=== PATIENT | female | born 1970 | race Caucasian/White ===

== ENCOUNTER 2016-07-23 09:35 | Emergency (ER) | payer BC, OTHER ==
[~2016-07-23] VITALS: Ht 170.2 cm; Wt 103.6 kg
[2016-07-23 09:38] VITALS: Ht 170.2 cm; Wt 103.6 kg
[2016-07-23] MEDS ORDERED: DiphenhydrAMINE HCL 50 MG/ML VIAL IV STA (09:54)
[2016-07-23] MEDS ORDERED: PROCHLORPERAZINE 5 MG/ML 2 ML VIAL IV STA (09:54)
[2016-07-23] MEDS ORDERED: SODIUM CHLORIDE 0.9% 1000ML 1,000 ML IV STA (09:54)
[2016-07-23] MEDS ORDERED: KETOROLAC TROMETHAMINE 30 MG/ML VIAL IV STA (09:54)
[2016-07-23] MEDS ORDERED: PROCHLORPERAZINE INJ 10 MG in SYRINGE 8 ML IV ONE (10:45)
[2016-07-23 11:30] LABS: HEMATOCRIT 39.6 % (37-47); MEAN CELL VOLUME 88.6 fL (80-100); MEAN CORPUSCULAR HEMOGLOBIN 30.4 pg (25-34); MEAN CORPUSCULAR HGB CONC 34.3 g/dl (32-36); MEAN PLATELET VOLUME 9.6 fL (7.4-10.4); PLATELET COUNT 220 K/uL (130-400); RED BLOOD COUNT 4.47 M/uL (4.2-5.4); WHITE BLOOD COUNT 10.56 K/uL (4.8-10.8)
[2016-07-23 11:49] LABS: CALCIUM 8.5 mg/dl (8.5-10.1); CREATININE 0.66 mg/dl (0.60-1.20); POTASSIUM 3.6 mmol/L (3.5-5.1)
--- NOTE | 2016-07-23 12:08 | DIAGNOSTIC IMAGING REPORT ---
HEAD CT NONCONTRAST CT DOSE: 614.27 mGy.cm HISTORY: Pain. Change in mental status. headache, severe TECHNIQUE: Multiaxial CT images of the head were performed without the use of intravenous contrast. Comparison: 11/06/2009 Findings: The paranasal sinuses and mastoid air cells are clear. The calvarium and skull base are intact. The ventricles and sulci are within normal limits. There is no mass, hematoma, midline shift, or acute infarct. Impression: No acute intracranial abnormality. Electronically signed by: Jayro Gunter M.D. 07/23/2016 12:07 PM Dictated Date/Time: 07/23/2016 12:06 PM
[2016-07-23 12:15] LABS: PREG INTERNAL NEGATIVE QC NEG CLEAR BACKGROUND; PREG INTERNAL POSITIVE QC POS CONTROL LINE
[2016-07-23 13:18] VITALS: BP 113/71; PULSE 66; O2SAT 98
--- NOTE | 2016-07-23 15:13 | EMERGENCY ROOM VISIT NOTE ---
History Report prepared by Precious: Velma Villarreal Under the Supervision of: Dr. Wilson Bruno M.D. First contact with patient: 09:50 Chief Complaint: HEADACHE Stated Complaint: LEFT EYE SIGHT, MOUTH TINGLING/NUMB, NAUSEA, CARMICHAEL History of Present Illness The patient is a 46 year old female who presents to the Emergency Room with complaints of persistent headache since this morning at 0820 (about 1.5 hours). She rates her discomfort as a 10/10. The pain is mostly on the left side. She drove herself to the ED from work. She experienced some migraines last week, but was able to alleviate the symptoms by taking Excedrin. She tried taking Excedrin, but experienced no relief this time. She has been having migraines for a long time. Previously, she has experienced total paralysis, facial droop, and vision loss with migraines. She was previously on a beta-ida, but had to stop after her blood pressure became too low. She reports that her left hand feels heavy and she is nauseous and feels photophobic. She has had brain images taken, but it has been a while since the last images were taken. Last week, she did experience a head cold, but otherwise, she has not been ill. Source of History: patient Onset: this morning 0820 Position: head Symptom Intensity: 10/10 Timing: other (persistent) Associated Symptoms: + nausea Note: Pt reports her left hand feeling heavy. Review of Systems See HPI for pertinent positives & negatives. A total of 10 systems reviewed and were otherwise negative. Past Medical & Surgical Medical Problems: (1) Migraine Family History Patient reports no known family medical history. Social History Smoking Status: Current Every Day Smoker Marital Status: Housing Status: lives with family Occupation Status: employed Current/Historical Medications No Active Prescriptions or Reported Meds Allergies Coded Allergies: No Known Allergies (Unverified , UNKNOWN, 11/29/10) Physical Exam Vital Signs Date Time Temp Pulse Resp B/P Pulse Ox O2 Delivery O2 Flow Rate FiO2 07/23/16 13:18 66 16 113/71 98 07/23/16 12:28 62 14 120/75 98 Room Air 07/23/16 10:40 49 18 110/78 97 Room Air 07/23/16 09:38 98 26 117/81 99 Room Air Physical Exam GENERAL: Patient is in no acute distress. Anxious. HEENT: No acute trauma, normocephalic atraumatic, mucous membranes moist, no nasal congestion, no scleral icterus. Pupils equal and reactive to light. NECK: No stridor, no adenopathy, no meningismus, trachea is midline. LUNGS: Clear to auscultation bilaterally, no wheeze, no rhonchi, breath sounds equal. HEART: Without murmurs gallops or rubs, regular rate and rhythm. ABDOMEN: Soft, nontender, bowel sounds positive, no hernias, no peritonitis. EXTREMITIES: No cyanosis or edema, full range of motion of all the joints without pain or difficulty, no signs for acute trauma. NEUROLOGIC: Awake, alert, moving all extremities, no speech slur or face droop, slightly decreased strength in left hand grasp, no cerebellar deficits. SKIN: No rash, no jaundice, no diaphoresis Medical Decision & Procedures ER Provider Diagnostic Interpretation: Radiology results and stated below per my review and radiologist interpretation: HEAD CT NONCONTRAST CT DOSE: 614.27 mGy.cm HISTORY: Pain. Change in mental status. headache, severe TECHNIQUE: Multiaxial CT images of the head were performed without the use of intravenous contrast. Comparison: 11/06/2009 Findings: The paranasal sinuses and mastoid air cells are clear. The calvarium and skull base are intact. The ventricles and sulci are within normal limits. There is no mass, hematoma, midline shift, or acute infarct. Impression: No acute intracranial abnormality. Electronically signed by: Jayro Gunter M.D. 07/23/2016 12:07 PM Dictated Date/Time: 07/23/2016 12:06 PM Laboratory Results 07/23/16 11:15 07/23/16 11:15 Test 07/23/16 11:15 Red Blood Count 4.47 M/uL (4.2-5.4) Mean Corpuscular Volume 88.6 fL (80-100) Mean Corpuscular Hemoglobin 30.4 pg (25-34) Mean Corpuscular Hemoglobin Concent 34.3 g/dl (32-36) RDW Standard Deviation 46.8 fL (36.4-46.3) RDW Coefficient of Variation 14.5 % (11.5-14.5) Mean Platelet Volume 9.6 fL (7.4-10.4) Anion Gap 11.0 mmol/L (3-11) Est Creatinine Clear Calc Drug Dose 134.6 ml/min Estimated GFR () 124.5 Estimated GFR (Non- 107.4 BUN/Creatinine Ratio 13.0 (10-20) Calcium Level 8.5 mg/dl (8.5-10.1) Human Chorionic Gonadotropin, Qual NEG (NEG) Laboratory results reviewed by me. Medications Administered Medications (Trade) Dose Ordered Sig/Anton Route Start Time Stop Time Status Last Admin Dose Admin Sodium Chloride (Nss 1000ml) 1,000 ml @ 999 mls/hr Q1H1M STAT IV 07/23/16 09:54 07/23/16 10:54 DC 07/23/16 10:39 999 MLS/HR Ketorolac Tromethamine (Toradol Inj) 30 mg NOW STAT IV 07/23/16 09:54 07/23/16 09:58 DC 07/23/16 10:39 30 MG Diphenhydramine HCl 50 mg 50 mg NOW STAT IV 07/23/16 09:54 07/23/16 09:58 DC 07/23/16 10:38 50 MG Prochlorperazine Edisylate/Syringe (Compazine Inj/ Syringe) 10 ml @ 5 mls/min 1045 ONCE IV 07/23/16 10:45 07/23/16 10:46 DC 07/23/16 10:39 5 MLS/MIN ED Course 0953: The patient was evaluated in room A3. A complete history and physical exam was performed. 0954: Benadryl Inj 50 mg IV, Toradol Inj 30 mg IV, NSS 1000 ml @ 999 mls/hr IV. 1045: Prochlorperazine Edisylate 10 mg/ Syringe 10 ml @ 5 mls/min IV. 1102: I reevaluated the patient. Her discomfort has decreased down to a 7/10. I discussed with her taking an MRI to investigate further. 1250: I reevaluated the patient. Her headache has resolved. She refused the MRI. She would like to go home. I discussed the results and treatment plan. She verbalized understanding and agreement. She will be discharged home. Medical Decision Differential diagnoses: migraine headache, complex migraine, intracranial bleeding, meningitis, stroke, anxiety. There is no leukocytosis or concerning anemia. No significant electrolyte abnormality or kidney failure. Brain CT shows no acute bleed or mass effect. The patient was not toxic or febrile. On exam, there was some very subtle left hand grasp weakness noticed. She was feeling weak on the left side. The patient is a history of complex migraines. Her headache today is consistent with a possible complex migraine. She was given IV Compazine, IV Benadryl, IV Toradol and IV saline, she feels markedly better. Because of the neurologic complaints, an MRI of the brain was ordered, the patient though could not tolerate this test and refused any further imaging. She was happy with the negative CT results. The patient is being discharged to follow with neurology. She was encouraged to return here for worsening symptoms. Her headache does sound migrainous. Impression Primary Impression: Headache Scribe Attestation The scribe's documentation has been prepared under my direction and personally reviewed by me in its entirety. I confirm that the note above accurately reflects all work, treatment, procedures, and medical decision making performed by me. Departure Information Dispostion Home / Self-Care Prescriptions No Active Prescriptions or Reported Meds Referrals Kendall Snyder M.D. (PCP) Forms HOME CARE DOCUMENTATION FORM, IMPORTANT VISIT INFORMATION, Work Instructions Patient Instructions My [facility] Additional Instructions rest fluids proper sleep and rest follow with your doctor and neurology return if worsening
== END 2016-07-23 13:19 | disposition home or self-care (01) ==
LOC: C.EDB 09:37 → C.EDA 13:19
DX: R51 Headache (principal); F17.200 Nicotine dependence, unspecified, uncomplicated

== ENCOUNTER 2017-05-25 19:45 | Emergency (ER) | payer BC, OTHER ==
[~2017-05-25] VITALS: Ht 170.2 cm; Wt 100.1 kg
[2017-05-25 19:56] VITALS: TEMP 36.7; Ht 170.2 cm; Wt 100.1 kg
--- NOTE | 2017-05-25 20:55 | DIAGNOSTIC IMAGING REPORT ---
R KNEE 3 VIEWS CLINICAL HISTORY: R knee pain x 1 mo pain COMPARISON: None. DISCUSSION: Minimal degenerative change medial joint compartment as well as patellofemoral joint. Lateral joint compartment is unremarkable. No significant joint effusion. Minimal osteophytic reaction superior and anterior aspects of the patella. No evidence for fracture. IMPRESSION: Minimal degenerative change primarily at the medial and patellofemoral joint compartments. No acute process. The above report was generated using voice recognition software. It may contain grammatical, syntax or spelling errors. Electronically signed by: Jayro Gunter M.D. 05/25/2017 8:54 PM Dictated Date/Time: 05/25/2017 8:53 PM
[2017-05-25] MEDS ORDERED: TRAM-10 PO (21:09)
[2017-05-25] MEDS ORDERED: TRAMADOL HCL 50 MG HOME PACK PO ONE (21:15)
--- NOTE | 2017-05-25 21:27 | EMERGENCY ROOM VISIT NOTE ---
History First contact with patient: 20:03 Chief Complaint: KNEEPAIN Stated Complaint: KNEE PAIN History of Present Illness The patient is a 47 year old female who presents to the Emergency Room with complaints of right knee pain for the past month. The patient denies any known injury to her knee, but reports that she does recall her knee popping while walking across her living room. The patient now reports pain with any type of activity and weightbearing. She denies any pain extending into the thigh or leg. She denies paresthesias or numbness of the right lower extremity. She does report a history of psoriasis around the ankles, but has never had any plaques over the right knee. She denies any history of chronic back pain or sciatica. She rates her discomfort an 8 out of 10. Review of Systems 10 system review was performed and was negative except for pertinent positives and negatives as indicated in history of present illness Past Medical/Surgical History Medical Problems: (1) Migraine Family History Patient reports no known family medical history. Social History Smoking Status: Current Every Day Smoker Marital Status: Housing Status: lives with family Occupation Status: employed Current/Historical Medications Scheduled PRN Tramadol (Ultram), 1-2 TAB PO Q4H PRN for Pain Physical Exam Vital Signs Date Time Temp Pulse Resp B/P (MAP) Pulse Ox O2 Delivery O2 Flow Rate FiO2 05/25/17 19:56 36.7 81 18 124/81 98 Room Air Physical Exam CONSTITUTIONAL: Healthy and well nourished. Alert and oriented X 3 with positive affect. HEENT: Normocephalic, atraumatic. Pupils equal, round and reactive. NECK: Full active range of motion without discomfort. MUSCULOSKELETAL: Examination of the right knee does not show any soft tissue edema, erythema, ecchymosis or skin lesions. The knee is not warm to palpation. No joint effusion noted. The patient has discomfort with flexion and extension. She is notably tender through the medial and lateral joint line. She is also mild tenderness through the hamstrings, quadriceps/patellar tendons and patella. Range of motion and ligamentous exam could not be performed because of discomfort. Pedal pulses are intact. No obvious palpable popliteal masses. INTEGUMENTARY: No rash or other significant dermatologic conditions noted. NEUROLOGIC: No focal neurologic deficits noted. Right lower extremity is sensory intact. Medical Decision & Procedures ER Provider Diagnostic Interpretation: My interpretation of right knee x-ray shows mild degenerative changes of the patellofemoral joint and medial joint line. No obvious knee effusion or fractures noted. Radiologist report is as follows: R KNEE 3 VIEWS CLINICAL HISTORY: R knee pain x 1 mo pain COMPARISON: None. DISCUSSION: Minimal degenerative change medial joint compartment as well as patellofemoral joint. Lateral joint compartment is unremarkable. No significant joint effusion. Minimal osteophytic reaction superior and anterior aspects of the patella. No evidence for fracture. IMPRESSION: Minimal degenerative change primarily at the medial and patellofemoral joint compartments. No acute process. ED Course Patient history and physical exam were performed. Nurse's notes were reviewed. Vital signs were reviewed and normal. X-rays of the right knee shows mild degenerative changes of the medial compartment and patellofemoral joint. Clinical exam of the knee was difficult because the patient discomfort. A knee immobilizer and crutches were applied. The patient was encouraged to intermittently apply ice to the knee. Ibuprofen and Tylenol in alternating fashion for baseline pain relief. The patient was provided a home pack and prescription for Ultram as needed for breakthrough pain. The patient was instructed to follow-up with [facility] for further reevaluation and management. She was instructed to call her PCP for a referral. The patient voiced understanding of all discharge instructions, was happy with plan of care, and rated her discomfort a 5 out of 10 at the conclusion of my exam. Medical Decision Pain with range of motion of the knee is most suggestive of intra-articular involvement. She has no significant edema, erythema or increased warmth to suggest septic joint or gout. Range of motion ligaments exam cannot be performed because of patient discomfort. I do not suspect deep vein thrombosis. [place] Drug Monitoring Program Search Results: patient reviewed within database, no issues identified Medication Reconcilliation Current Medication List: was personally reviewed by me Blood Pressure Screening Patient's blood pressure: Normal blood pressure Impression Primary Impression: Right knee pain Departure Information Dispostion Home / Self-Care Prescriptions Tramadol (Ultram) 50 Mg Tab 1-2 TAB PO Q4H Y for Pain, #20 TAB For Initial Treatment Prov: Ruben Anthony PA 05/25/17 Referrals Al Isaac M.D. Forms HOME CARE DOCUMENTATION FORM, IMPORTANT VISIT INFORMATION Patient Instructions My [facility] Additional Instructions Ice and elevate knee for swelling and pain. Wear knee immobilizer when up and about. Use crutches if needed for additional relief - NO LIMPING. Ibuprofen 800 mg and/or Tylenol 1000 mg every 8 hours. You may also alternate these medications for more effective pain relief: Ibuprofen --4 HRS--> Tylenol --4 HRS--> ibuprofen --4 HRS--> Tylenol .... Ultram if needed for worse pain. Follow-up with [facility] (Dr. Isaac) for further evaluation and treatment - call Saturday for appointment. Fernando also need a referral from your PCP for this appointment.
[2017-05-25 21:44] VITALS: BP 104/65; PULSE 67; O2SAT 96
== END 2017-05-25 21:45 | disposition home or self-care (01) ==
LOC: C.EDB 19:46 → C.EDD 21:45
DX: M25.561 Pain in right knee (principal); F17.200 Nicotine dependence, unspecified, uncomplicated

== ENCOUNTER → 2017-06-21 | Outpatient (CLI) | payer OTHER ==
[~2017-06-21] MED LIST: TRAM-10 PO
[2017-06-21 16:48] LABS: HEMATOCRIT 43.4 % (37-47); HEMOGLOBIN 14.4 g/dL (12.0-16.0); MEAN CELL VOLUME 91.4 fL (80-100); MEAN CORPUSCULAR HEMOGLOBIN 30.3 pg (25-34); MEAN CORPUSCULAR HGB CONC 33.2 g/dl (32-36); MEAN PLATELET VOLUME 10.8 fL (7.4-10.4); PLATELET COUNT 233 K/uL (130-400); RED CELL DISTRIBUTION WIDTH CV 14.6 % (11.5-14.5); RED CELL DISTRIBUTION WIDTH SD 48.9 fL (36.4-46.3); WHITE BLOOD COUNT 10.78 K/uL (4.8-10.8)
[2017-06-21 17:07] LABS: ALBUMIN 3.9 gm/dl (3.4-5.0); ALT/SGPT 19 U/L (12-78); BLOOD UREA NITROGEN 9 mg/dl (7-18); CALCIUM 9.1 mg/dl (8.5-10.1); CARBON DIOXIDE 23 mmol/L (21-32); CREATININE 0.77 mg/dl (0.60-1.20); GLUCOSE 131 mg/dl (70-99); POTASSIUM 3.4 mmol/L (3.5-5.1); SODIUM 138 mmol/L (136-145)
[2017-06-21 17:17] LABS: ALKALINE PHOSPHATASE 89 U/L (45-117); AST/SGOT 13 U/L (15-37); TOTAL PROTEIN 7.6 gm/dl (6.4-8.2)
== END | disposition home or self-care (01) ==
LOC: C.LABBFT 14:17
PROVIDERS: ATTEND Internal Medicine
DX: E53.8 Deficiency of other specified B group vitamins (principal); E55.9 Vitamin D deficiency, unspecified; R53.83 Other fatigue

== ENCOUNTER 2017-12-30 11:06 | Emergency (ER) | payer OTHER ==
[~2017-12-30] VITALS: Ht 170.2 cm; Wt 98.6 kg
[~2017-12-30 11:06] MED LIST changes: +HYDR-3983 PO; +IBUP-1428 PO; +LORA-741 PO; +ONDA4TAB46 PO; +SERTPOW PO; -TRAM-10 PO; +[UNRECOGNIZED DRUG - REMARK] PO
[2017-12-30 11:12] VITALS: TEMP 36.8; O2SAT 97; Ht 170.2 cm; Wt 98.6 kg
[2017-12-30] MEDS ORDERED: SERT-234 PO (11:36)
[2017-12-30] MEDS ORDERED: FRCT/ PO (11:36)
[2017-12-30] MEDS ORDERED: LORA-741 PO (11:36)
[2017-12-30] MEDS ORDERED: ONDA4TAB46 PO (11:36)
[2017-12-30] MEDS ORDERED: CYAN500S5 PO (11:36)
[2017-12-30] MEDS ORDERED: ERGO500037 PO (11:36)
[2017-12-30 11:56] LABS: BASO % 0.4 %; BASO ABS # 0.04 K/uL (0-0.2); EOS % 1.1 %; IG# 0.02 K/uL (0.00-0.02); LYMPH ABS # 3.17 K/uL (1.2-3.4); MEAN CELL VOLUME 90.3 fL (80-100); MEAN CORPUSCULAR HEMOGLOBIN 30.1 pg (25-34); MEAN CORPUSCULAR HGB CONC 33.3 g/dl (32-36); MEAN PLATELET VOLUME 10.5 fL (7.4-10.4); MONO % 8.1 %; MONO ABS # 0.75 K/uL (0.11-0.59); NEUT % 56.2 %; NEUT ABS # 5.23 K/uL (1.4-6.5); PLATELET COUNT 224 K/uL (130-400); RED CELL DISTRIBUTION WIDTH CV 14.3 % (11.5-14.5); RED CELL DISTRIBUTION WIDTH SD 47.1 fL (36.4-46.3); WHITE BLOOD COUNT 9.31 K/uL (4.8-10.8)
--- NOTE | 2017-12-30 12:09 | DIAGNOSTIC IMAGING REPORT ---
HEAD WITHOUT CONTRAST (CT) CLINICAL HISTORY: 47 years-old Female with headache, tingling in left arm. Acute headache TECHNIQUE: Multiple axial CT images of the head were obtained without contrast. A dose lowering technique was utilized adhering to the principles of ALARA. CT DOSE: 537.48 mGy.cm COMPARISON: Head CT 07/23/2016. FINDINGS: No acute intracranial hemorrhage, midline shift, intracranial mass, hydrocephalus, territorial ischemia or abnormal extra-axial collection. The calvarium is intact. Mastoid air cells are clear. Minimal mucosal thickening about the right sphenoid sinus. Soft tissues and orbits are unremarkable. IMPRESSION: No acute intracranial abnormality. The above report was generated using voice recognition software. It may contain grammatical, syntax or spelling errors. Electronically signed by: Dave Lopez M.D. 12/30/2017 12:07 PM Dictated Date/Time: 12/30/2017 12:05 PM
[2017-12-30 12:15] LABS: ALBUMIN 3.7 gm/dl (3.4-5.0); ALKALINE PHOSPHATASE 93 U/L (45-117); ALT/SGPT 21 U/L (12-78); AST/SGOT 14 U/L (15-37); BLOOD UREA NITROGEN 7 mg/dl (7-18); CALCIUM 8.9 mg/dl (8.5-10.1); CARBON DIOXIDE 21 mmol/L (21-32); CREATININE 1.04 mg/dl (0.60-1.20); GLUCOSE 106 mg/dl (70-99); POTASSIUM 3.8 mmol/L (3.5-5.1); SODIUM 140 mmol/L (136-145); TOTAL PROTEIN 7.6 gm/dl (6.4-8.2)
--- NOTE | 2017-12-30 12:23 | DIAGNOSTIC IMAGING REPORT ---
CHEST 2 VIEWS ROUTINE CLINICAL HISTORY: Atypical chest pain. Heart flutter. Headache. COMPARISON STUDY: 11/27/2017 FINDINGS: The cardiac and mediastinal contours are normal. There is no evidence of focal pulmonary consolidation. There is no evidence of failure. No pleural effusions are visualized.[ IMPRESSION: No active disease in the chest. Electronically signed by: Samy Nielsen M.D. 12/30/2017 12:22 PM Dictated Date/Time: 12/30/2017 12:21 PM
[2017-12-30] MEDS ORDERED: SODIUM CHLORIDE 0.9% 1000ML 1,000 ML IV STA (12:28)
[2017-12-30] MEDS ORDERED: PROCHLORPERAZINE 5 MG/ML 2 ML VIAL IV STA (12:28)
[2017-12-30] MEDS ORDERED: KETOROLAC TROMETHAMINE 30 MG/ML VIAL IV STA (12:28)
--- NOTE | 2017-12-30 12:45 | EMERGENCY ROOM VISIT NOTE ---
ED Visit Note First contact with patient: 11:30 CHIEF COMPLAINT: Headache, fatigue, tingling in arms HISTORY OF PRESENTING ILLNESS: This is a 47-year-old female who presents to the emergency department with complaint of headache, tingling in arms for the past week. The patient states "I just feel like crap." She states that she is primarily here because of her headache and not feeling well. She states that she did have an episode of chest pain 2 days ago, but this has resolved, though she states every once in a while she feels a "flutter" in her chest and she is worried about having atrial fibrillation. She states that she was told she had atrial fibrillation after receiving anesthesia a few years ago, but she never got follow-up with her family doctor regarding this. She states that the headache has been constant for the past 1 week, described as diffuse and pounding/throbbing, nothing seems to make it better or worse, she currently rates as 4/10. She does report a history of migraines, but states this feels worse than her migraines. She states that she has had tingling in her arms for the past week, she states that it moves back and forth between both arms, but has been more consistent in the left arm. She denies any weakness or complete loss of feeling of any extremities. She denies any associated dizziness or syncope, shortness of breath, cough, abdominal pain, back pain, nausea or vomiting, diarrhea, bloody or black stools, dysuria or urinary frequency, or unusual rash. REVIEW OF SYSTEMS: A complete 10 point review of systems was reviewed with the patient with pertinent positives and negatives as per history of present illness. All else were negative. PAST MEDICAL HISTORY: Migraines, anxiety and depression FAMILY HISTORY: Unknown, patient states she is adopted. SOCIAL HISTORY: Lives at home. She is a current everyday smoker. ALLERGIES: Reviewed in chart, see below. PHYSICAL EXAM: CONSTITUTIONAL: Pleasant and cooperative. No acute distress. Mildly dehydrated , but otherwise well appearing and well nourished. HEENT: Normocephalic, atraumatic. Pupils equal, round and reactive to light, EOMI. TMs normal. Pharynx normal. Tacky mucous membranes. NECK: Supple, full active range of motion without discomfort. RESPIRATORY: Clear to auscultation bilaterally with no wheezing, crackles, rhonchi or stridor. Equal expansion bilaterally. CARDIOVASCULAR: Bradycardic. Regular rhythm with no murmurs, rubs or gallops. Normal peripheral perfusion. No edema. GASTROINTESTINAL: Soft, nontender, nondistended. No palpable masses or HSM. Bowel sounds present in all quadrants. MUSCULOSKELETAL: Full range of motion of all joints without discomfort. INTEGUMENTARY: No rash or other significant dermatologic conditions noted. NEUROLOGIC: Alert and oriented X 4 with normal affect. Cranial nerves II-XII grossly intact, no facial droop. No pronator drift. No focal neurologic deficits noted. Normal strength and sensation in all 4 extremities. Normal speech. Normal gait observed. Negative Romberg. Rbbpmk-rfgr-jcgemy testing normal. ED COURSE AND MEDICAL DECISION MAKING: CC: Patient presenting with complaint of headache, fatigue, tingling in arms DIFFERENTIAL DIAGNOSIS: Includes, but not limited to tension headache, migraine headache, dehydration, symptomatic bradycardia, heart block, Lyme disease, thyroid disease, electrolyte abnormality, anemia, among others. INTERPRETATION OF LABS: No leukocytosis, no anemia, normal platelets, no significant electrolyte abnormalities, normal renal function, normal liver enzymes. Negative troponin. TSH within normal limits. Lyme testing negative. UA negative. IMAGING: CHEST 2 VIEWS ROUTINE CLINICAL HISTORY: Atypical chest pain. Heart flutter. Headache. COMPARISON STUDY: 11/27/2017 FINDINGS: The cardiac and mediastinal contours are normal. There is no evidence of focal pulmonary consolidation. There is no evidence of failure. No pleural effusions are visualized. IMPRESSION: No active disease in the chest. ----- HEAD WITHOUT CONTRAST (CT) CLINICAL HISTORY: 47 years-old Female with headache, tingling in left arm. Acute headache TECHNIQUE: Multiple axial CT images of the head were obtained without contrast. A dose lowering technique was utilized adhering to the principles of ALARA. CT DOSE: 537.48 mGy.cm COMPARISON: Head CT 07/23/2016. FINDINGS: No acute intracranial hemorrhage, midline shift, intracranial mass, hydrocephalus, territorial ischemia or abnormal extra-axial collection. The calvarium is intact. Mastoid air cells are clear. Minimal mucosal thickening about the right sphenoid sinus. Soft tissues and orbits are unremarkable. IMPRESSION: No acute intracranial abnormality. EKG: Shows sinus bradycardia with no acute ST or T-wave changes, no ectopy, no significant change when compared to previous EKG from 11/27/2017 by my interpretation. MEDICATION RECONCILIATION: I attest that I have personally reviewed the patient 's current medication list. INITIAL VITAL SIGNS REVIEW: I reviewed the patient's initial vital signs and interpret them as follows: T: Afebrile; BP: Normotensive; HR: Bradycardic; RR : Within normal limits; Pulse Ox: Within normal limits on room air. Blood pressure screening: The patient was found to have normal blood pressure on screening and does not require follow-up for repeat blood pressure check. SUMMARY: Patient was evaluated at bedside, history and physical exam performed. Patient is alert and oriented, in no acute distress, resting calmly in stretcher. She appears mildly dehydrated on clinical exam, but is not tachycardic or hypotensive. She is in fact bradycardic, appears to be a sinus rhythm on monitor. Sinus bradycardia confirmed on EKG, no evidence of AV block or ectopy. Orders were placed at bedside for labs, UA, IV fluids for hydration as a precaution, migraine cocktail with Toradol and Compazine, chest x-ray, CT of the head to evaluate for headache. Patient discussed with Dr. Bermudez, who agrees with my assessment and plan. Labs and imaging reviewed as above, unremarkable. Patient reassessed multiple times throughout ED stay, she is remained stable, she states that she feels much better after receiving the migraine cocktail and her headache is now gone. She is requesting to go home. Patient was updated on all results and plan for discharge, she was encouraged to follow closely with her PCP regarding her headaches and her bradycardia. Patient was also given strict return precautions should her symptoms worsen, she verbalized understanding. Patient was discharged home in stable condition and ambulatory. Current/Historical Medications Scheduled Cyanocobalamin (Vitamin B-12), 1 TAB PO DAILY Ergocalciferol (Vitamin D 46614 Unit), 50,000 UNIT PO WK Sertraline (Zoloft), 100 MG PO DAILY Scheduled PRN Acetamin/Butalbital/Caffeine (Fioricet), 1-2 TABS PO Q4 PRN for Migraine Lorazepam (Ativan), 0.5 MG PO UD PRN for Anxiety Ondansetron Hcl (Zofran), 4 MG PO UD PRN for Nausea Allergies Coded Allergies: Morphine (Unverified Adverse Reaction, Intermediate, "MADE ME SICK", ) Vital Signs Date Time Temp Pulse Resp B/P (MAP) Pulse Ox O2 Delivery O2 Flow Rate FiO2 12/30/17 13:44 66 18 102/67 99 12/30/17 13:03 55 16 109/71 98 Room Air 12/30/17 12:19 52 16 118/85 97 Room Air 12/30/17 12:10 48 12/30/17 11:12 97 Room Air 12/30/17 11:12 97 Room Air 12/30/17 11:12 36.8 53 18 134/87 97 Room Air Laboratory Results 12/30/17 11:17 Red Blood Count 4.65, Mean Corpuscular Volume 90.3, Mean Corpuscular Hemoglobin 30.1, Mean Corpuscular Hemoglobin Concent 33.3, Mean Platelet Volume 10.5, Neutrophils (%) (Auto) 56.2, Lymphocytes (%) (Auto) 34.0, Monocytes (%) (Auto) 8.1, Eosinophils (%) (Auto) 1.1, Basophils (%) (Auto) 0.4, Neutrophils # (Auto) 5.23, Lymphocytes # (Auto) 3.17, Monocytes # (Auto) 0.75, Eosinophils # (Auto) 0.10, Basophils # (Auto) 0.04 12/30/17 11:17 Test 12/30/17 11:17 12/30/17 11:51 White Blood Count 9.31 K/uL (4.8-10.8) Red Blood Count 4.65 M/uL (4.2-5.4) Hemoglobin 14.0 g/dL (12.0-16.0) Hematocrit 42.0 % (37-47) Mean Corpuscular Volume 90.3 fL (80-100) Mean Corpuscular Hemoglobin 30.1 pg (25-34) Mean Corpuscular Hemoglobin Concent 33.3 g/dl (32-36) Platelet Count 224 K/uL (130-400) Mean Platelet Volume 10.5 fL (7.4-10.4) Neutrophils (%) (Auto) 56.2 % Lymphocytes (%) (Auto) 34.0 % Monocytes (%) (Auto) 8.1 % Eosinophils (%) (Auto) 1.1 % Basophils (%) (Auto) 0.4 % Neutrophils # (Auto) 5.23 K/uL (1.4-6.5) Lymphocytes # (Auto) 3.17 K/uL (1.2-3.4) Monocytes # (Auto) 0.75 K/uL (0.11-0.59) Eosinophils # (Auto) 0.10 K/uL (0-0.5) Basophils # (Auto) 0.04 K/uL (0-0.2) RDW Standard Deviation 47.1 fL (36.4-46.3) RDW Coefficient of Variation 14.3 % (11.5-14.5) Immature Granulocyte % (Auto) 0.2 % Immature Granulocyte # (Auto) 0.02 K/uL (0.00-0.02) Anion Gap 9.0 mmol/L (3-11) Est Creatinine Clear Calc Drug Dose 82.4 ml/min Estimated GFR () 75.1 Estimated GFR (Non- 64.8 BUN/Creatinine Ratio 7.0 (10-20) Calcium Level 8.9 mg/dl (8.5-10.1) Magnesium Level 2.1 mg/dl (1.8-2.4) Total Bilirubin 0.5 mg/dl (0.2-1) Direct Bilirubin 0.1 mg/dl (0-0.2) Aspartate Amino Transf (AST/SGOT) 14 U/L (15-37) Alanine Aminotransferase (ALT/SGPT) 21 U/L (12-78) Alkaline Phosphatase 93 U/L (45-117) Troponin I < 0.015 ng/ml (0-0.045) Total Protein 7.6 gm/dl (6.4-8.2) Albumin 3.7 gm/dl (3.4-5.0) Thyroid Stimulating Hormone (TSH) 1.420 uIu/ml (0.300-4.500) Lyme Disease IgG Antibody NEG (NEG) Lyme Disease IgM Antibody NEG (NEG) Urine Color YELLOW Urine Appearance CLEAR (CLEAR) Urine pH 7.0 (4.5-7.5) Urine Specific [place] 1.005 (1.000-1.030) Urine Protein NEG (NEG) Urine Glucose (UA) NEG (NEG) Urine Ketones NEG (NEG) Urine Occult Blood NEG (NEG) Urine Nitrite NEG (NEG) Urine Bilirubin NEG (NEG) Urine Urobilinogen NEG (NEG) Urine Leukocyte Esterase NEG (NEG) Medications Administered Medications (Trade) Dose Ordered Sig/Anton Route Start Time Stop Time Status Last Admin Dose Admin Sodium Chloride 1,000 ml @ 999 mls/hr Q1H1M STAT IV 12/30/17 12:28 12/30/17 13:28 DC 12/30/17 12:42 999 MLS/HR Ketorolac Tromethamine (Toradol Inj) 15 mg NOW STAT IV 12/30/17 12:28 12/30/17 12:29 DC 12/30/17 12:42 15 MG Prochlorperazine Edisylate (Compazine Inj) 10 mg NOW STAT IV 12/30/17 12:28 12/30/17 12:29 DC 12/30/17 12:42 10 MG Departure Information Impression Primary Impression: Migraine Additional Impression: Sinus bradycardia Dispostion Home / Self-Care Condition GOOD Referrals Kendlal Snyder M.D. (PCP) Patient Instructions ED Bradycardia, ED Headache Migraine, [facility] Additional Instructions You have been evaluated and treated in the emergency department today for your headache. Laboratory results and imaging studies have ruled out any emergent causes for your symptoms which would warrant admission or surgery. For pain control, you can use the following vsnp-pur-ffwsnxi medicines (if >12 yo): - Regular strength (325mg/tab) Tylenol (acetaminophen) 2 tabs every 4-6 hours as needed. Do not exceed 10 tablets in a 24 hour period. Avoid taking more than 3000 mg of Tylenol per day. This includes any other sources of acetaminophen you may take on a regular basis. - Regular strength (200 mg/tab) Advil (ibuprofen) 3 tabs every 6-8 hours as needed. Do not exceed a dose of 2400 mg per day. Drink plenty of fluids to stay well hydrated. Rest today in a quiet, peaceful, dark environment and get a full 8-10 hrs of sleep tonight. Avoid loud noises, smoke/smoking, alcohol, bright lights, stress, or physical exertion today to minimize the chance the headache may return. Continue current medications as prescribed. Return to the ER for severe dizziness or passing out, worsening headache, vision problems, neck stiffness/pain, fevers, vomiting, worsening of your condition, or as needed. Follow up with your primary care provider in 2-3 days for a recheck of your current condition and to discuss further evaluation of your low heart rate. Work Instructions Return To Work: 2 days Problem Qualifiers Primary Impression: Migraine Migraine type: unspecified Status migrainosus presence: with status migrainosus Intractability: not intractable Qualified Codes: G43.901 - Migraine, unspecified, not intractable, with status migrainosus
[2017-12-30 13:44] VITALS: BP 102/67; PULSE 66; O2SAT 99
== END 2017-12-30 13:58 | disposition home or self-care (01) ==
LOC: C.EDB 11:08 → C.EDA 13:58
DX: G43.901 Migraine, unspecified, not intractable, with status migrainosus (principal); R00.1 Bradycardia, unspecified; F17.200 Nicotine dependence, unspecified, uncomplicated

== ENCOUNTER 2023-05-27 05:08 | Observation (INO) ==
--- NOTE | 2023-04-25 10:38 | PAT Medication Instructions ---
Medication Instructions Date of Service April 25, 2023 Home Medications Medication Instructions Recorded diclofenac sodium 1 % topical gel 2 g topical QID PRN pain #100 04/05/ grams lxngpnivub-ybdsmnryhbdju-bzrxhiim 1 - 2 cap PO Q4H PRN Migraine 05/18/22 50 mg-300 mg-40 mg capsule Headache #18 caps (Fioricet) ondansetron HCl 4 mg tablet 4 mg PO Q6H PRN nausea and 05/18/22 vomiting #20 tabs blood sugar diagnostic #100 ea 09/14/22 blood-glucose meter #1 ea 09/14/22 lancets 33 gauge (OneTouch Delica #100 ea 09/19/22 Lancets) tramadol 50 mg tablet 50 mg PO Q6H PRN pain #20 tabs 10/31/22 ixekizumab 80 mg/mL subcutaneous 80 mg subcut .COMPLEX #1 mL 12/24/22 auto-injector (Taltz Autoinjector) albuterol sulfate 90 mcg/actuation 2 puff inhalation QID PRN 01/11/23 aerosol inhaler (ProAir HFA) shortness of breath #8.5 grams lorazepam 0.5 mg tablet 0.5 mg PO BID PRN anxiety #50 tabs 04/18/23 diclofenac sodium 1 % topical gel 2 g topical QID PRN pain pqdnzytztq-joxelexgsojsq-fyw[place]uk 50 mg-300 mg-40 mg capsule (Fioricet) 1 - 2 cap PO Q4H PRN Migraine Headache ondansetron HCl 4 mg tablet 4 mg PO Q6H PRN nausea and vomiting rosuvastatin 20 mg tablet 20 mg PO HS tramadol 50 mg tablet 50 mg PO Q6H PRN pain ixekizumab 80 mg/mL subcutaneous auto-injector (Taltz Autoinjector) 80 mg subcut .COMPLEX pantoprazole 40 mg tablet,delayed release (Protonix) 40 mg PO HS albuterol sulfate 90 mcg/actuation aerosol inhaler (ProAir HFA) 2 puff inhalation QID PRN shortness of breath lorazepam 0.5 mg tablet 0.5 mg PO BID PRN anxiety cyanocobalamin (vitamin B-12) 1,000 mcg tablet,extended release (Vitamin B-12 ER) 1,000 mcg PO HS multivitamin 1 tab PO QAM ropinirole 0.25 mg tablet 0.25 mg PO HS sertraline 100 mg tablet 200 mg PO HS ASK your surgeon for instructions diclofenac sodium 1 % topical gel 2 g topical QID PRN pain ASK your prescriber and surgeon ixekizumab 80 mg/mL subcutaneous auto-injector (Taltz Autoinjector) 80 mg subcut .COMPLEX DO NOT take the morning of surgery lqeamejqsx-onwaurenjwqex-otdhjcsp 50 mg-300 mg-40 mg capsule (Fioricet) 1 - 2 cap PO Q4H PRN Migraine Headache cyanocobalamin (vitamin B-12) 1,000 mcg tablet,extended release (Vitamin B-12 ER) 1,000 mcg PO HS multivitamin 1 tab PO QAM Take morning of surgery With a small sip of water, OTHERWISE NOTHING TO EAT OR DRINK AFTER MIDNIGHT: ondansetron HCl 4 mg tablet 4 mg PO Q6H PRN nausea and vomiting (if needed) tramadol 50 mg tablet 50 mg PO Q6H PRN pain (if needed) albuterol sulfate 90 mcg/actuation aerosol inhaler (ProAir HFA) 2 puff inha lation QID PRN shortness of breath (use if needed; please bring rescue inhaler with you to hospital day of surgery if possible) lorazepam 0.5 mg tablet 0.5 mg PO BID PRN anxiety (if needed) Take evening before surgery fnxifzhhrf-ofcwdphcrkzge-ndxxqsef 50 mg-300 mg-40 mg capsule (Fioricet) 1 - 2 cap PO Q4H PRN Migraine Headache (okay to use if needed unless told otherwise by surgeon) ondansetron HCl 4 mg tablet 4 mg PO Q6H PRN nausea and vomiting (if needed) rosuvastatin 20 mg tablet 20 mg PO HS tramadol 50 mg tablet 50 mg PO Q6H PRN pain (if needed) pantoprazole 40 mg tablet,delayed release (Protonix) 40 mg PO HS albuterol sulfate 90 mcg/actuation aerosol inhaler (ProAir HFA) 2 puff inhalation QID PRN shortness of breath (if needed) lorazepam 0.5 mg tablet 0.5 mg PO BID PRN anxiety (if needed) cyanocobalamin (vitamin B-12) 1,000 mcg tablet,extended release (Vitamin B-12 ER) 1,000 mcg PO HS ropinirole 0.25 mg tablet 0.25 mg PO HS sertraline 100 mg tablet 200 mg PO HS Other Notes If you have any questions please call us at [phone] or [phone] or [phone] or [phone]
--- NOTE | 2023-05-01 11:04 | Anesthesiology Consultation ---
Date of Service May 01, 2023 Assessment & Plan (1) Encounter for pre-operative examination: - Infectious disease screening: Per assessment on 05/01/23: No known infectious disease contacts or current infectious disease symptoms. No noted recent Covid positive test result. - S/P Right knee arthroscopy (10/25/22): LMA#4 at [facility] [place] - Outpatient joint assessment: Pt currently scheduled for inpatient pathway. If surgeon requests review for outpatient joint pathway, patient is not recommended candidate for outpatient joint program from anesthesia standpoint based on available information. - PCP visit (04/25/23 [place]): "GERD (gastroesophageal reflux disease): "Suspect uncontrolled GERD causing pharyngitis and dysphagia. No white plaques. Is immunosuppressed. 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 We will follow work up. She is on PPI but wasn't taking properly. She was advised to take pantoprazole 40mg. 30 minutes before dinner or before breakfast. If her symptoms do not improve, she will let us know. We can escalate to BID dosing or get EGD as next steps. Also can consider GI referral as well if clinically needed. Consider possible candidia esophagitis as cause too since had prior oral thrush, no signs on physical exam today.. Iritis of right eye.. 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 Note suspected related to her autoimmune hx as cause. Has appropriate follow up. She hasn't received eye abx or steroid yet, strongly advised her to go get this right away to start treatment." > Patient reports at PAT visit 05/01/23 that her iritis is improving- she is currently taking the eye abx + steroid- surgeon aware. Patient advised to contact PCP/surgeon/PAT if not resolved prior to surgery. - Anesthesia concern: Patient requesting deeper sedation perioperatively if possible* Chart Review Chart Review: Acceptable Risk for Surgery and Patient seen in Pre Admission Testing Teaching & Discussion Pre-Anesthesia Teaching/Discussion Notes: Instructed NPO after midnight before surgery,except medications with 15 cc of water. Medication instructions provided according to the PAT guidelines. p History Surgery Operation Date: 05/27/23 10:30 Proposed Procedures p Right Unicompartment Knee Arthroplasty versus Right Total Knee Arthroplasty - Eros Faye, DO Height/Weight Height: 5 ft 7 in Weight: 97 kg Allergies Allergy/AdvReac Type Severity Reaction Status Date / Time morphine AdvReac Severe "Made me Verified 04/25/23 14:10 sick" meloxicam AdvReac Intermediate Nausea, Verified 04/25/23 14:10 headache, "Really sick" Medications Home Medications Medication Instructions Recorded Confirmed Last Taken diclofenac sodium 1 % topical gel 2 g topical QID PRN pain #100 04/05/20 04/25/23 Unknown grams [id number] 1 - 2 cap PO Q4H PRN Migraine 05/18/22 04/25/23 Unknown 50 mg-300 mg-40 mg capsule Headache #18 caps (Fioricet) ondansetron HCl 4 mg tablet 4 mg PO Q6H PRN nausea and 05/18/22 04/25/23 Unknown vomiting #20 tabs blood sugar diagnostic #100 ea 09/14/22 04/25/23 Unknown blood-glucose meter #1 ea 09/14/22 04/25/23 Unknown lancets 33 gauge (OneTouch Delica #100 ea 09/19/22 04/25/23 Unknown Lancets) rosuvastatin 20 mg tablet 20 mg PO HS 10/19/22 04/25/23 10/24/22 tramadol 50 mg tablet 50 mg PO Q6H PRN pain #20 tabs 10/31/22 04/25/23 Unknown pantoprazole 40 mg tablet,delayed 40 mg PO HS 12/27/22 04/25/23 Unknown release (Protonix) albuterol sulfate 90 mcg/actuation 2 puff inhalation QID PRN 01/11/23 04/25/23 Unknown aerosol inhaler (ProAir HFA) shortness of breath #8.5 grams lorazepam 0.5 mg tablet 0.5 mg PO BID PRN anxiety #50 tabs 04/18/23 04/25/23 Unknown cyanocobalamin (vitamin B-12) 1,000 mcg PO HS 04/25/23 04/25/23 Unknown 1,000 mcg tablet,extended release (Vitamin B-12 ER) multivitamin 1 tab PO QAM 04/25/23 04/25/23 Unknown mupirocin 2 % topical ointment 1 applic topical BID #22 grams 04/25/23 04/25/23 Unknown ropinirole 0.25 mg tablet 0.25 mg PO HS 04/25/23 04/25/23 Unknown sertraline 100 mg tablet 200 mg PO HS 04/25/23 04/25/23 Unknown Wheeled Walker #1 ea 05/01/23 05/01/23 Unknown Past Medical History Medical History Iritis Dx 04/2023- evaluation by ER, PCP and optometry > improving with abx + steroid as of PAT visit 05/01/23 Dysphagia [place] r/t GERD Chronic cough Plaque psoriasis Follows with Dr Long, recently discontinued Taltz Chronic sinusitis History of COVID-19 Labor Day 2022- severe flu symptoms > resolved 05/2022 > resolved Prediabetes Diet controlled Seizure-like activity Intermittent episodes since age 19 > Seizure ruled out per patient, felt to be complicated migraine, no recent issues Osteoarthritis GERD (gastroesophageal reflux disease) Sleep apnea No device Chronic obstructive pulmonary disease Restless legs Excessive daytime sleepiness Pulmonary nodules monitoring Psoriatic arthritis History of cervical cancer (2012) S/P hysterectomy, no chemo or radiation Depression Anxiety Migraine Exercise / Class Metabolic Activity III < 4 Walking/Shop/Light housework (one FS (no CP, occasional ASOB)) Past Family History Family History Father Family history of diabetes mellitus Myocardial infarction Prostate cancer Mother Family history of diabetes mellitus Breast cancer Colorectal cancer Mother Family hx of colon cancer Other No family history of adverse response to anesthesia Denies family history of Ovarian cancer Past Surgical History Surgical History S/P trigger finger release bilateral middle fingers History of tooth extraction S/P knee surgery R/L knees Right knee arthroscopy (10/25/22): LMA#4 at [facility] [place] [facility] S/P laparoscopic hysterectomy with BSO History of appendectomy History of cervical biopsy Past Anesthesia History No Family Hx of Anesthesia Complications and Other (Dyspnea post-op cholecystectomy (Approximately 2010), no similar issues with other surgeries/anesthesia) History of PONV No Hx of PONV and Hx of Motion Sickness (Occasional) Social History Smoking Status: Current every day smoker tobacco type: cigarettes Smoking cigarettes per day: 1 PPD (advised) Do You Dip or Chew Tobacco: No Hx Alcohol Use: No Hx Substance Use: No substance use type: does not use Review of Systems Chronic cough (felt r/t smoking), unchanged/at baseline. Patient denies chest pain, shortness of breath, fever, chills, wheezing, palpitations. Physical Exam Vital Signs VITALS BP 114/72 P 59 TEMP 97.9 SP02 96%RA RESP 18 PHYSICAL Full cervical extension range of motion. Full TMJ range of motion. TMD 3.5 finger breaths Mallampati Score 2 Dentition: upper/lower dentures Lungs: clear throughout to auscultation Cardiac: regular rate and rhythm, no murmurs noted Spine: normal Carotid arteries: negative bruit Extremities: no LE edema Lab Results Anesthesia Preop Results Results Anesthesia Widget: WBC 10.62 K/ul (4.8-10.8) 05/01/23 Hgb 14.5 g/dl (12.0-16.0) 05/01/23 Hct 44.0 % (37.0-47.0) 05/01/23 Plt 214 K/uL (130-400) 05/01/23 Na 137 mmol/L (136-145) 04/21/23 K 3.9 mmol/L (3.5-5.1) 04/21/23 Cl 107 mmol/L (98-107) 04/21/23 CO2 19 mmol/L (21-32) L 04/21/23 BUN 9 mg/dl (6-23) 04/21/23 Creat 0.82 mg/dl (0.6-1.2) 04/21/23 Glucose Level 115 mg/dl (70-99(Fasting)) H 04/21/23 PT 10.6 Seconds (9.0-12.0) 05/01/23 PTT 32 Seconds (21-31) H 05/01/23 INR 1.0 (0.9-1.1) 05/01/23 HA1c 6.0 % (4.5-5.6) H 05/01/23 Coronavirus OC43 (PCR) Not Detected (NotDetected) 04/21/23 Coronavirus HKU1 (PCR) Not Detected (NotDetected) 04/21/23 Coronavirus 229E (PCR) Not Detected (NotDetected) 04/21/23 COVID-19 PCR Not Detected (NotDetected) 04/21/23 Coronavirus NL63 (PCR) Not Detected (NotDetected) 04/21/23 Blood Type A Positive 05/01/23 Antibody Screen NEGATIVE 05/01/23 Testing Electrocardiogram Date: 10/01/22 SB at 56bpm. Low voltage QRS. No significant change compared to 03/11/2020 per phys therapist comparison* Chest X-Ray Date: 12/16/22 FINDINGS: No pneumothorax. No pleural effusions. The cardiac silhouette remains mildly enlarged. There is diffuse interstitial thickening which is similar to the prior study. Therefore, this is likely chronic. Otherwise, no new focal lung consolidations to suggest a pneumonia. No evidence for pulmonary edema. IMPRESSION: No significant change compared to the prior study. Chronic interstitial thickening and mild cardiomegaly persists.
[2023-05-27] MEDS ORDERED: LR 60ML/HR IV SCH (06:00)
[2023-05-27] MEDS ORDERED: TRANEXAMIC ACID 1,000 MG **IV Pre-op IV SCH (06:00)
[2023-05-27] MEDS ORDERED: FAMOTIDINE 20 MG TAB PO SCH (06:00)
[2023-05-27] MEDS ORDERED: ROPIV 0.5% 246mg, Ketorolac 30mg, EPINEPHrine 0.5mg in NSS INFIL SCH (06:00)
[2023-05-27] MEDS ORDERED: dexAMETHasone**PF** 10 MG/ML VIAL IV SCH (06:00)
[2023-05-27] MEDS ORDERED: TRANEXAMIC ACID 1,000 MG **IV Intra-op IV SCH (06:00)
[2023-05-27] MEDS ORDERED: GABAPENTIN 900 MG DOSE PO SCH (06:00)
[2023-05-27] MEDS ORDERED: LR 500ML BOLUS, THEN 15ML/HR IV SCH (06:00)
[2023-05-27] MEDS ORDERED: ACETAMINOPHEN 500 MG TAB PO SCH (06:00)
[2023-05-27] MEDS ORDERED: ceFAZolin 2000MG 2,000 MG/15 ML SYR IV SCH (06:00)
[2023-05-27] MEDS ORDERED: BUPIVACAINE 0.5 % 5 MG/1 ML PF 10ML VIAL ONE (06:18)
[2023-05-27] MEDS ORDERED: BUPIVACAINE 0.25% PF 30 ML VIAL ONE (06:18)
--- NOTE | 2023-05-27 06:27 | History & Physical Bridge Note ---
Date of Service May 27, 2023 History & Physical Bridge Note I have examined the patient, reviewed the History & Physical and in the interval since the performance of the History & Physical I have noted the following changes of clinical significance: no changes noted
[2023-05-27] MEDS ORDERED: MIDAZOLAM HCL 1 MG/ML 2ML VIAL ONE (06:38)
[2023-05-27] MEDS ORDERED: PROPOFOL IV EMULSION 10 MG/ML 20 ML VIAL IV ONE (06:41)
[2023-05-27] MEDS ORDERED: ORTHO JOINT ANESTHETIC ONE (06:57)
[2023-05-27] MEDS ORDERED: ATROPINE SULFATE 0.1 MG/ML 10ML SYR IV PRN (07:00)
[2023-05-27] MEDS ORDERED: ONDANSETRON INJ 2 MG/ML 2 ML VIAL IV PRN ×2 (07:00→09:29)
[2023-05-27] MEDS ORDERED: fentaNYL citrate PF 100 MCG/2 ML VIAL IV PRN (07:00)
[2023-05-27] MEDS ORDERED: ePHEDrine sulfate 50 MG/ML AMP IV PRN (07:00)
[2023-05-27] MEDS ORDERED: ePHEDrine sulfate 50 MG/5 ML SYR ONE (08:01)
--- NOTE | 2023-05-27 08:09 | Operative Report ---
PG Post Operative Report Pre & Post Diagnosis Operation Date: 05/27/23 07:00 Pre-Op Diagnosis: Right Knee Degenerative Joint Disease Post-Op Diagnosis: Right Knee Degenerative Joint Disease I identified the patient and participated in the time-out.: Yes Procedure Operation Date: 05/27/23 07:00 Actual Procedures p Right Unicompartment Knee Arthroplasty(Right) - Eros Faye DO Surgeon Eros Faye DO Portable Track Line Marker Eros Aguero PA-C Estimated Blood Loss 10 Findings Consistent with Post-Op Diagnosis Specimens Right femoral and tibial bone Description of Procedure On May 27, [address] [facility] for the above procedure. She was seen in the preoperative holding area and the operative extremity was identified and signed. She is given a preoperative antibiotic and a spinal anesthetic. She was taken back to the operating room and laid on table supine position. She was given basic sedation. The right knee was prepped and draped in sterile fashion. A timeout was done. The patient and the operative extremity was properly identified. A midline incision was made just medial to the patella tendon. Dissection was taken down through the fascia. A small mid vastus arthrotomy was used. A small portion of fat pad was excised and the medial retinaculum was released. The medial meniscus was then excised. There was significant arthritis in the medial compartment. There was mild arthritis in the patellofemoral compartment. The lateral compartment looked good. The ACL was intact. A decision was made to do a partial knee replacement. The knee was then flexed. A proximal tibial resection guide was placed. 4 mm was resected off the medial aspect of the proximal tibia. The knee was brought out into full extension. A distal femoral cutting block was placed. The distal femur was then resected. The knee was then flexed. A size 6 femoral guide seemed to be the best fit. A size 6 cutting block was then screwed into place. 2 peg holes were drilled followed by posterior and chamfer cuts. Attention was turned to the proximal tibia. The tibia measured to be a size E. A tibial block was pinned into place. 2 peg holes were drilled. A femoral component was impacted in place. A 9 mm polyethylene trial was then snapped into place. The knee was brought through full range of motion and felt to be stable. All trial components were then removed. The final components were then cemented with Biomet cement. Once cement had hardened, a size 9 polyethylene insert was then snapped into place. The tourniquet was deflated and hemostasis was obtained. Surrounding soft tissues were injected with 50 cc of an orthopedic pain control cocktail. The extensor mechanism was closed with #1 Vicryl suture. Skin was closed with 2-0 Vicryl, 3-0 V-Loc suture, and jose raul. She was placed in a soft compressive dressing. She was then taken to the postanesthesia care unit in stable condition. She tolerated the procedure well. Eros Aguero PA-C, was present for the entire procedure. He was critical for patient positioning, prepping, draping, retraction exposure, wound closure and application of sterile dressing. I attest to the content of the Intraoperative Record and any orders documented therein. Any exceptions are noted below.
--- NOTE | 2023-05-27 09:01 | XRay Report ---
XR knee RT 1 or 2V routine HISTORY: 53 years-old Female Surgical Post Op right knee arthroplasty COMPARISON: 05/01/2023 TECHNIQUE: 2 views of the right knee FINDINGS: Medial compartment hemiarthroplasty with overlying skin jose raul, expected postoperative soft tissue s welling with deep tissue air. No acute fracture or unexpected opaque foreign body. IMPRESSION: Medial compartment hemiarthroplasty with expected postoperative changes. ACT 112: Negative or not required by law. The above report was generated using voice recognition software. It may contain grammatical, syntax o r spelling errors. Electronically signed by: Kameron Lopez M.D. 05/27/2023 9:00 AM
[2023-05-27] MEDS ORDERED: METOCLOPRAMIDE HCL INJ 5 MG/ML 2 ML VIAL IV PRN (09:29)
[2023-05-27] MEDS ORDERED: bisacodyL 10 MG SUPP PR PRN (09:29)
[2023-05-27] MEDS ORDERED: HYDROmorphone INJ 0.5 MG/0.5 ML SYR IV PRN (09:29)
[2023-05-27] MEDS ORDERED: ALBUTEROL HFA 8 GM INHALER INH PRN (09:29)
[2023-05-27] MEDS ORDERED: PHARMACY GLYCEMIC MGMT CONSULT PRN (09:29)
[2023-05-27] MEDS ORDERED: MAGNESIUM HYDROXIDE SUSP 30 ML UDC PO PRN (09:29)
[2023-05-27] MEDS ORDERED: NALOXONE HCL 0.4 MG/1 ML VIAL/CARP IV PRN (09:29)
[2023-05-27] MEDS ORDERED: LORazepam 0.5 MG TAB PO PRN (09:29)
[2023-05-27] MEDS ORDERED: BUTALBITAL/ASPIRIN/CAFFEINE 1 TAB TAB PO PRN (09:40)
[2023-05-27] MEDS ORDERED: ONDANSETRON 4 MG OD TAB PO PRN (09:41)
[2023-05-27] MEDS ORDERED: GLUCOSE 40% GEL 15 GM TUBE PO PRN (10:30)
[2023-05-27] MEDS ORDERED: DEXTROSE 50% 50 ML SYRINGE IV PRN (10:30)
[2023-05-27] MEDS ORDERED: GLUCAGON FOR INJ 1 MG VIAL IM PRN (10:30)
[2023-05-27] MEDS: SODIUM CHLORIDE 0.9% 1,000 ML IV SCH ×2 (10:30→19:34)
[2023-05-27] MEDS ORDERED: GLUCOSE 10 TAB/TUBE PO PRN (10:30)
[2023-05-27] MEDS ORDERED: CARBOHYDRATES FOR HYPOGLYCEMIA PO PRN (10:30)
[2023-05-27] MEDS: MUPIROCIN 2% OINT 22 GM TUBE TOP SCH ×2 (10:32→19:38)
[2023-05-27] MEDS: MULTIVITAMIN TAB PO SCH (10:32)
[2023-05-27] MEDS: ASPIRIN 81 MG ECTAB PO SCH ×2 (10:32→19:35)
[2023-05-27] MEDS: DOCUSATE SODIUM 100 MG CAP PO SCH ×2 (10:33→19:36)
[2023-05-27] MEDS: KETOROLAC 30 MG/ML VIAL IV SCH ×3 (10:37→21:18)
[2023-05-27] MEDS: oxyCODONE HCL IR 5 MG TAB (IMMEDIATE RELEASE) PO PRN ×2 (11:18→18:21)
[2023-05-27] MEDS: INSULIN ASPART PER UNIT CHARGE SC SCH ×3 (12:26→21:32)
--- NOTE | 2023-05-27 12:58 | Pharmacy Report ---
Pharmacy Glycemic Short Note 2 - Date of Service May 27, 2023 - Glycemic Short BSG Results (Last 24 hours): 05/27/23 11:28 POC Glucose 176 H OUTPATIENT ANTIDIABETIC REGIMEN: * N/A * A1c 6.0% indicates pre-diabetes ASSESSMENT: * Patient is a 53 yo female admitted post R knee arthroplasty. She is not on any antidiabetes medications outpatient, and most recent A1c indicates pre- diabetes. * Patient did receive 10 mg of IV dexamethasone preop, pre-lunch BSG 176 mg/dL. Will begin novolog weight based stress of 1 and hold on basal at this time, ideally would like to keep post-operative patients below 160 mg/dL. * Monitor for adjustments, may be able to remove carb ratio if BSGs remain at goal. PLAN FOR INPATIENT GLYCEMIC CONTROL: * Basal insulin * Hold * Bolus insulin * NovoLog per scale ACHS or Q6hrs while NPO * Goal Range: Low 110 mg/dL - High 140 mg/dL * Correction Factor: 45 mg/dL/unit * Nutritional / Prandial insulin per carb ratio of 1 unit per 15 grams CHO consumed
--- NOTE | 2023-05-27 13:05 | Anesthesiology Progress Note ---
Date of Service May 27, 2023 Anesthesia Post Procedure Vital Signs Vital Signs: Temp Pulse Pulse Resp BP Pulse Ox O2 Del Method 05/27/23 12:22 36.5 C 54 L 18 99/66 L 95 Room Air 05/27/23 11:14 36.5 C 58 L 16 99/65 L 95 Room Air 05/27/23 10:17 64 16 101/67 97 Room Air 05/27/23 09:45 50 L 16 134/84 99 Room Air 05/27/23 09:30 Nasal Cannula 05/27/23 09:20 36.4 C L 52 L 16 112/74 99 Nasal Cannula 05/27/23 09:05 48 L 21 107/63 92 Nasal Cannula 05/27/23 08:55 36.5 C 51 L 21 109/70 91 Room Air 05/27/23 08:45 49 L 20 111/67 93 Oxymask 05/27/23 08:35 46 L 17 119/60 96 Oxymask 05/27/23 08:26 36.1 C L 50 L 18 110/69 97 Oxymask 05/27/23 05:43 36.5 C 61 20 103/78 97 Room Air O2 Flow Rate 05/27/23 12:22 05/27/23 11:14 05/27/23 10:17 05/27/23 09:45 05/27/23 09:30 2 05/27/23 09:20 2 05/27/23 09:05 2 05/27/23 08:55 05/27/23 08:45 2 05/27/23 08:35 5 05/27/23 08:26 5 05/27/23 05:43 Transfer of Care Handoff Completed per policy Notes Mental Status: alert / awake / arousable Patient Amnestic to Procedure: Yes Nausea / Vomiting: adequately controlled Pain: adequately controlled Airway Patency, RR, SpO2: stable & adequate BP & HR: stable & adequate Hydration State: stable & adequate Neuraxial Anesthesia: was administered and sensory block is resolving Anesthetic Complications: no major complications apparent and Pt Satisfied with anesthetic care
[2023-05-27] MEDS: ACETAMINOPHEN 500 MG TAB PO SCH ×2 (14:54→21:18)
[2023-05-27] MEDS: ceFAZolin 2000MG 2,000 MG/15 ML SYR IV SCH ×2 (14:54→22:02)
[2023-05-27] MEDS: NICOTINE 14 MG/24 HR PATCH TD SCH (19:35)
[2023-05-27] MEDS ORDERED: SIMETHICONE 80 MG CHEW PO PRN (20:47)
[2023-05-27] MEDS ORDERED: LACTATED RINGER'S 500 ML IV ONE (20:47)
--- NOTE | 2023-05-27 20:49 | Hospitalist Consultation ---
Date of Consultation May 27, 2023 Assessment & Plan (1) Status post right partial knee replacement: 53yo female s/p right total knee arthroplasty performed today 05/27/22. Surgery was well tolerated with no complications. Patient has had mild hypotension ongoing as well as sinus bradycardia with normal intervals/no blocks. She has minimal if any symptoms - does feel tired but is otherwise mentating and perfusing well. Likely secondary to medication effects from anesthesia. -Please check CBC, BMP, Mg and PO4 to assess possibility of post-op anemia or electrolyte abnormalities -LR 500mL bolus x 1 -Continue vital signs per unit standard - please notify hospitalist of any worsening hypotension, bradycardia or symptoms of such -Will order Simethicone PRN gas pain -Will order box fan per patient request -Post-operative management, pain control, anti-emetics, bowel regimen and discharge planning per primary team (2) Chronic obstructive pulmonary disease: Patient denies cough, SOB or wheeze. No O2 requirement -Continue Albuterol PRN (3) Hyperlipidemia: Chronic. Stable -Continue Crestor 20mg po qHS (4) Prediabetes: Diet managed. Blood sugars have been borderline high, last 137. HgbA1C performed on 05/01/23 = 6 -Pharmacy following for glycemic management (5) GERD (gastroesophageal reflux disease): Chronic. Stable -Continue Protonix 40mg po qHS (6) Sleep apnea: Chronic. Stable -Patient does not use a device History of Present Illness Reason for Consultation: hypotension, bradycardia Attending Physician: Eros Faye, DO History of Present Illness Qing Contreras is a pleasant 53yo female with history of HOLLI (not on CPAP), COPD and RLS s/p right knee arthroplasty performed today 05/27/[address] Faye. Spinal/MAC anesthesia administered. Surgery was well tolerated with no complications identified, minimal blood loss. Patient returned to the medical floor. She reports pain is controlled at present. She denies nausea but has some abdominal bloating and discomfort. She has urinated but has not had a BM or passed flatus yet. She denies chest pain, palpitations, nausea, vomiting or shortness of breath. She reports having some hot flashes earlier in the evening as well as a headache, otherwise no complaints. We have been consulted due to borderline low blood pressures and bradycardia. Patient's BP has been 92-99/55-66. Bradycardia with HR 44-58, confirmed to be sinus on EKG. Allergies Allergy/AdvReac Type Severity Reaction Status Date / Time morphine AdvReac Severe "Made me Verified 05/27/23 05:32 sick" meloxicam AdvReac Intermediate Nausea, Verified 05/27/23 05:32 headache, "Really sick" Home Medications Medication Instructions Recorded Confirmed Type diclofenac sodium 1 % topical gel 2 g topical QID PRN pain #100 04/05/20 05/27/23 Rx grams obawagsgtt-cslhsaqkfzvzx-mfoaerwv 1 - 2 cap PO Q4H PRN Migraine 05/18/22 05/27/23 Rx 50 mg-300 mg-40 mg capsule Headache #18 caps (Fioricet) ondansetron HCl 4 mg tablet 4 mg PO Q6H PRN nausea and 05/18/22 05/27/23 Rx vomiting #20 tabs blood sugar diagnostic #100 ea 09/14/22 04/25/23 Rx blood-glucose meter #1 ea 09/14/22 04/25/23 Rx lancets 33 gauge (OneTouch Delica #100 ea 09/19/22 04/25/23 Rx Lancets) rosuvastatin 20 mg tablet 20 mg PO HS 10/19/22 05/27/23 History tramadol 50 mg tablet 50 mg PO Q6H PRN pain #20 tabs 10/31/22 05/27/23 Rx pantoprazole 40 mg tablet,delayed 40 mg PO HS 12/27/22 05/27/23 History release (Protonix) albuterol sulfate 90 mcg/actuation 2 puff inhalation QID PRN 01/11/23 05/27/23 Rx aerosol inhaler (ProAir HFA) shortness of breath #8.5 grams lorazepam 0.5 mg tablet 0.5 mg PO BID PRN anxiety #50 tabs 04/18/23 05/27/23 Rx cyanocobalamin (vitamin B-12) 1,000 mcg PO HS 04/25/23 05/27/23 History 1,000 mcg tablet,extended release (Vitamin B-12 ER) multivitamin 1 tab PO QAM 04/25/23 05/27/23 History mupirocin 2 % topical ointment 1 applic topical BID #22 grams 04/25/23 05/27/23 Rx ropinirole 0.25 mg tablet 0.25 mg PO HS 04/25/23 05/27/23 History sertraline 100 mg tablet 200 mg PO HS 04/25/23 05/27/23 History Wheeled Walker #1 ea 05/01/23 05/01/23 Rx Patient History Medical History (Updated 05/27/23 @ 21:49 by Carolynn Corrigan DO) Iritis Dx 04/2023- evaluation by ER, PCP and optometry > improving with abx + steroid as of PAT visit 05/01/23 Dysphagia [place] r/t GERD Chronic cough Plaque psoriasis Follows with Dr Long, recently discontinued Taltz Chronic sinusitis History of COVID-19 Labor Day 2022- severe flu symptoms > resolved 05/2022 > resolved Prediabetes Diet controlled Seizure-like activity Intermittent episodes since age 19 > Seizure ruled out per patient, felt to be complicated migraine, no recent issues Osteoarthritis GERD (gastroesophageal reflux disease) Sleep apnea No device Chronic obstructive pulmonary disease Restless legs Excessive daytime sleepiness Pulmonary nodules monitoring Psoriatic arthritis History of cervical cancer (2012) S/P hysterectomy, no chemo or radiation Depression Anxiety Migraine Surgical History S/P trigger finger release bilateral middle fingers History of tooth extraction S/P knee surgery R/L knees Right knee arthroscopy (10/25/22): LMA#4 at [facility] [place] S/P laparoscopic hysterectomy with BSO History of appendectomy History of cervical biopsy Family History Father Family history of diabetes mellitus Myocardial infarction Prostate cancer Mother Family history of diabetes mellitus Breast cancer Colorectal cancer Mother Family hx of colon cancer Other No family history of adverse response to anesthesia Denies family history of Ovarian cancer Social History Smoking Status: Current every day smoker Tobacco Type: Cigarettes packs per day: 1; Cigarettes Per Day: 1 PPD (advised); Second Hand Exposure: No; Do You Dip or Chew Tobacco: No; Tobacco Cessation Education Requested by Patient: No Hx Alcohol Use: No Hx Substance Use: No Preferred Language: Greenlandic Communication Ability: Effective Visual Impairment: No Limitations Hearing Ability: Normal District Court Reporter Required: No Beliefs That Will Affect Care: None marital status: Current Living Situation: Spouse Current Living Situation Comment: GRANDDAUGHTER LIVE WITH PT & ex- current occupational status: unemployed How many Children do You have: 3 Other Information That Helps Us Care for You: No Feels Safe at Home: Yes Safety Concerns: Feels Safe At This Time Childhood Exposure to Second-Hand Smoke: No Diet: regular Assistive Devices: Denture - Upper, Denture - Lower and Glasses Review of Systems Review of Systems: All systems reviewed & are unremarkable except as noted in HPI & below Physical Exam Physical Exam: General: patient resting comfortably, NAD, non-toxic in appearance, AA&O x 4 Skin: warm, dry, no rashes or lesions, capillary refill <2 seconds HEENT: NC/AT, PERRL, EOMI, anicteric sclera, conjunctiva without injection, external ear normal to inspection and nontender, nares patent, moist mucus membranes, dentition intact, no oropharyngeal lesions, neck supple, trachea midline, no LAD, no thyromegaly, no JVD Heart: +S1/S2, regular, bradycardic, no m/r/g Lungs: equal air entry bilaterally, no rales/rhonchi/wheezes Abd: +BS, soft, NT/ND, no masses/organomegaly/ascites Ext: warm, 2+ pulses in UE/LE bilaterally, no clubbing/cyanosis or edema, dressing in place RLE c/d/i Neuro: nonfocal, patient AA&O x 4, speech intact, no facial droop, moving all extremities on command with equal strength 5/5 Repeat blood pressure at bedside 100/62 LUE, HR 47 regular Results & Data Results & Data Vital Signs (Past 12 Hours) Vital Signs Temp Pulse Pulse Resp BP Pulse Ox O2 Del Method 05/27/23 19:33 36.5 C 44 L 16 92/55 L 97 Room Air 05/27/23 12:22 36.5 C 54 L 18 99/66 L 95 Room Air 05/27/23 11:14 36.5 C 58 L 16 99/65 L 95 Room Air 05/27/23 10:17 64 16 101/67 97 Room Air 05/27/23 09:45 50 L 16 134/84 99 Room Air 05/27/23 09:30 Nasal Cannula 05/27/23 09:20 36.4 C L 52 L 16 112/74 99 Nasal Cannula 05/27/23 09:05 48 L 21 107/63 92 Nasal Cannula 05/27/23 08:55 36.5 C 51 L 21 109/70 91 Room Air O2 Flow Rate 05/27/23 19:33 05/27/23 12:22 05/27/23 11:14 05/27/23 10:17 05/27/23 09:45 05/27/23 09:30 2 05/27/23 09:20 2 05/27/23 09:05 2 05/27/23 08:55 Laboratory Results Laboratory Results WBC 15.31 K/ul (4.8-10.8) H 05/27/23 20:59 RBC 4.01 M/uL (4.20-5.40) L 05/27/23 20:59 Hgb 12.0 g/dl (12.0-16.0) 05/27/23 20:59 Hct 35.9 % (37.0-47.0) L 05/27/23 20:59 MCV 89.5 fL (80.0-100.0) 05/27/23 20:59 MCH 29.9 pg (25.0-34.0) 05/27/23 20:59 MCHC 33.4 g/dL (32.0-36.0) 05/27/23 20:59 RDW Std Deviation 47.8 fL (36.4-46.3) H 05/27/23 20:59 RDW Coeff of Felipe 14.6 % (11.5-14.5) H 05/27/23 20:59 Plt Count 179 K/uL (130-400) 05/27/23 20:59 MPV 10.7 fL (9.4-12.4) 05/27/23 20:59 Sodium 139 mmol/L (136-145) 05/27/23 20:59 Potassium 3.8 mmol/L (3.5-5.1) 05/27/23 20:59 Chloride 111 mmol/L (98-107) H 05/27/23 20:59 Carbon Dioxide 22 mmol/L (21-32) 05/27/23 20:59 Anion Gap 6 (3-11) 05/27/23 20:59 BUN 16 mg/dl (6-23) 05/27/23 20:59 Creatinine 0.83 mg/dl (0.6-1.2) 05/27/23 20:59 Est Cr Clr Drug Dosing 95.8 ml/min 05/27/23 20:59 Est GFR ( Amer) 94.6 ml/min 05/27/23 20:59 Est GFR (Non-Af Amer) 81.6 ml/min 05/27/23 20:59 BUN/Creatinine Ratio 19.3 (10-20) 05/27/23 20:59 Glucose 133 mg/dl (70-99(Fasting)) H 05/27/23 20:59 POC Glucose 137 mg/dl (70-99) H 05/27/23 20:54 Calcium 8.4 mg/dl (8.6-10.3) L 05/27/23 20:59 Phosphorus 3.7 mg/dl (2.5-4.9) 05/27/23 20:59 Magnesium 2.1 mg/dl (1.7-2.4) 05/27/23 20:59 Impressions Knee X-Ray 05/27/23 08:27 XR knee RT 1 or 2V routine HISTORY: 53 years-old Female Surgical Post Op right knee arthroplasty COMPARISON: 05/01/2023 TECHNIQUE: 2 views of the right knee FINDINGS: Medial compartment hemiarthroplasty with overlying skin jose raul, expected postoperative soft tissue swelling with deep tissue air. No acute fracture or unexpected opaque foreign body. IMPRESSION: Medial compartment hemiarthroplasty with expected postoperative changes. ACT 112: Negative or not required by law. The above report was generated using voice recognition software. It may contain grammatical, syntax or spelling errors. Electronically signed by: Kameron Lopez M.D. 05/27/2023 9:00 AM ECG Additional Comments: EKG per my interpretation - sinus bradycardia with HR of 44, normal axis, XJ=496, QRS=96, ZJt=819, no acute ischemic changes PG Care Time/CCT Total # of Minutes Spent Total Time Spent with Patient: Total time spent is greater than 50% in coordination of care (as documented) at patient's floor/unit and/or counseling patient: Coding Level of Care Code 48377 IN/OBS CONSULT LVL 3,45M Diagnoses Status post right partial knee replacement Z96.651 Chronic obstructive pulmonary disease J44.9 Hyperlipidemia E78.5 Prediabetes R73.03 GERD (gastroesophageal reflux disease) K21.9 Sleep apnea G47.30
[2023-05-27] MEDS ORDERED: SENNA 8.6 MG TAB PO SCH (21:00)
[2023-05-27] MEDS ORDERED: PANTOprazole 40 MG TAB PO SCH (21:00)
[2023-05-27] MEDS ORDERED: ROSUVASTATIN CALCIUM 20 MG TAB PO SCH (21:00)
[2023-05-27] MEDS ORDERED: rOPINIRole HCL 0.25 MG TABLET PO SCH (21:00)
[2023-05-27] MEDS ORDERED: SERTRALINE HCL 100 MG TABLET PO SCH (21:00)
[2023-05-27 21:28] LABS: BUN Creatinine Ratio 19.3 (10-20); Calcium 8.4 mg/dl (8.6-10.3); Creatinine Clr Calc Pharmacy 95.8 ml/min; Est GFR (African American) 94.6 ml/min; Est GFR (Non-African American) 81.6 ml/min; Magnesium 2.1 mg/dl (1.7-2.4); Phosphorus 3.7 mg/dl (2.5-4.9); Potassium 3.8 mmol/L (3.5-5.1)
[2023-05-27 21:34] LABS: Hematocrit (blood only) 35.9 % (37.0-47.0); Mean Corpuscular Hemoglobin 29.9 pg (25.0-34.0); Mean Corpuscular Hgb Conc 33.4 g/dL (32.0-36.0); Mean Corpuscular Volume 89.5 fL (80.0-100.0); Mean Platelet Volume 10.7 fL (9.4-12.4); Platelet Count 179 K/uL (130-400); RDW Coefficient of Variation 14.6 % (11.5-14.5); RDW Standard Deviation 47.8 fL (36.4-46.3); Red Blood Count 4.01 M/uL (4.20-5.40); White Blood Count 15.31 K/ul (4.8-10.8)
[2023-05-28] MEDS: KETOROLAC 30 MG/ML VIAL IV SCH ×2 (02:44→10:44)
[2023-05-28] MEDS: ACETAMINOPHEN 500 MG TAB PO SCH (05:39)
[2023-05-28] MEDS: SODIUM CHLORIDE 0.9% 1,000 ML IV SCH (05:51)
[2023-05-28] MEDS: INSULIN ASPART PER UNIT CHARGE SC SCH (08:48)
[2023-05-28] MEDS: NICOTINE 14 MG/24 HR PATCH TD SCH (08:48)
[2023-05-28] MEDS: DOCUSATE SODIUM 100 MG CAP PO SCH (08:49)
[2023-05-28] MEDS: MUPIROCIN 2% OINT 22 GM TUBE TOP SCH (08:49)
[2023-05-28] MEDS: ASPIRIN 81 MG ECTAB PO SCH (08:49)
[2023-05-28] MEDS: MULTIVITAMIN TAB PO SCH (08:49)
--- NOTE | 2023-05-28 10:02 | Orthopedic Progress Note ---
Date of Service May 28, 2023 Assessment & Plan (1) Status post right partial knee replacement: Overall, she is doing quite well today with good pain control to the right knee. She will work with physical therapy later today to work on ambulation and range of motion exercises. She is on aspirin for DVT prophylaxis. She will be discharged home later today pending physical therapy evaluation. She will follow-up with orthopedics in 2 weeks for postoperative care. Subjective . Qing was seen and evaluated at bedside this morning resting comfortably in no apparent distress. She notes that her pain is well-controlled to the right knee. She has been up and ambulating to the bathroom with no significant issues. She has yet to be seen by physical therapy. She denies any other concerns today. Review of Systems All systems reviewed & are unremarkable except as noted in HPI & below. Physical Exam . On physical examination of the right knee, her dressings are clean, dry, and intact. Her leg is out in full extension. She has active plantarflexion dorsiflexion at the right ankle. +2 DP and PT pulses. Less than 2-second capillary refill. Normal sensation. Neurovascular intact. Results & Data Results & Data Laboratory Results . Diagnostic Findings . Postoperative x-rays of the right knee show prosthesis to be in anatomical alignment with no signs of fracture complication or loosening. PG Care Time/CCT Total # of Minutes Spent Total Time Spent with Patient: Total time spent is greater than 50% in coordination of care (as documented) at patient's floor/unit and/or counseling patient: Coding Level of Care Code 13792 Post Operative Follow-Up Diagnoses Status post right partial knee replacement Z96.651
--- NOTE | 2023-05-28 10:05 | Discharge Summary ---
Date of Service May 28, 2023 Principal Diagnosis Same as "Discharge Diagnosis" noted below under Discharge Instructions. Discharge Exam . On physical examination of the right knee, her dressings are clean, dry, and intact. Her leg is out in full extension. She has active plantarflexion dorsiflexion at the right ankle. +2 DP and PT pulses. Less than 2-second capillary refill. Normal sensation. Neurovascular intact. Discharge Data Consultations 05/27/23 20:05 Consult Hospitalist Routine Procedures Performed Operation Date: 05/27/23 07:00 Actual Procedures p Right Unicompartment Knee Arthroplasty(Right) - Eros Faye DO Ordered Studies 05/27/23 05:00 US - OR guided needle placemen Routine Hospital Course (1) Status post right partial knee replacement: On May 27, 2023 Qing arrived at [facility] and underwent a right unicompartmental knee arthroplasty with Dr. Faye with no complications. She had a spinal anesthetic. Postoperatively, she was started on aspirin for DVT prophylaxis and transferred to the general orthopedic floor. Her hospital course was uneventful. On postoperative day #1, her vital signs were stable and her pain was well-controlled. She participated well with physical therapy working on ambulation and range of motion exercises. She was then discharged home in stable condition. She will follow-up with orthopedics in 2 weeks for postoperative care. PG Care Time/CCT Total # of Minutes Spent Total Time Spent with Patient: Total time spent is greater than 50% in coordination of care (as documented) at patient's floor/unit and/or counseling patient: Discharge Plan Discharge Items Patient Disposition: Home - Home Health Services Reason For Visit: Degenerative Joint Disease Right Knee Discharge Diagnosis: Same Activity: Per Instructions section Non-emergency contact: Surgeon Call non-emergency contact if: your temperature is above 101.5, your wound has increased redness and your wound has increased drainage Follow-up/Referrals: Eros Faye DO [Physician] - 06/12/23 10:00 am Izaiah Dunn DO [Primary Care Provider] - Diet: Regular Addtl Attending Provider Instructions: Activity and Therapy Recommendations: * If you are using [facility] then therapy will be provided at your home until they feel you have accomplished all of your goals. * If you are using [facility] then Physical Therapy will be provided until they feel you are ready to start Outpatient Physical Therapy. * If you are not using home therapy then Outpatient Physical Therapy should start about 3-5 days from your day of surgery. Therapy will last about 6-10 weeks * It is important not to put a pillow under your knee when you are relaxing or sleeping. It is just as important to make sure you are getting your knee perfectly straight as it is to regain your knee bend. * You were shown a series of exercises in the hospital. Do these exercises three times each day including the exercises you were shown in physical therapy. * Get up and walk several times each day. For the first four weeks, try not to stand or walk for more than one hour at a time. If you do stand or walk for more than one hour, you will not hurt anything, but your leg will likely swell. * As you feel comfortable, you may change from the walker or crutches to a cane and then to independent walking. Medications: * Narcotic You will likely be sent home from the hospital with a prescription for the narcotic pain medication that worked best throughout your stay. * Cefadroxil -take the antibiotic twice a day for 10 days to help prevent infection. * Aspirin Most patients will be required to take Aspirin 81mg twice a day for 6 weeks after surgery. This is obtained [id number] and a prescription is not necessary. * Other medications may be prescribed for specific circumstances. If you have any questions, please call the office at . * Resume previous home medications unless otherwise instructed TEDs/Elastic Stockings: The white elastic stockings help limit swelling and prevent blood clots from forming in your legs.~ The more you wear them, the more they work. Wear them for six weeks. Dressing Care: The dressing can be changed after physical therapy on postop day #1. Daily dry dressing changes for a few days, especially if the incision is still draining some. If the incision is not draining then you may leave the jose raul open to air. If there is a little bit of drainage or if the jose raul are getting stuck on your clothing then cover the incision with a dry dressing. The jose raul will be removed at your 2 week follow-up appointment. Showering: You may shower 5 days from the day of surgery as long as the incision is no longer draining. You may shower with the jose raul exposed. Let soapy water run over the jose raul and pat them dry. Do not scrub or soak the incision. Things To Watch For: * Drainage from the incision site that occurs more than one week after your surgery. * Increased redness at the incision site. * Fever above 102 degrees Fahrenheit. * Unusual chest pain or shortness of breath. * Call [facility] at with any of the above problems Follow-Up Visit: Follow-up with Dr. Faye's PA (Eros Aguero) 2-3 weeks after your day of surgery. He will remove your jose raul and answer any questions. If you have any additional questions or concerns, Dr Faye is usually in the office at the same time and will be available An appointment was probably scheduled when you signed-up for surgery in the office. If you have any questions call Office Instructions: More detailed instructions as well as Frequently Asked Questions were provided in a folder by our office when you signed-up for surgery. Please review these instructions when you get home. If you have any further questions or concerns, please feel free to call the office at [phone] Pending Studies at Discharge: No Stand-Alone Forms: My [facility] [employer], Smoking Cessation Medications and DC Order Prescriptions: New aspirin 81 mg Tablet,Delayed Release (Dr/Ec) 81 mg PO BID 42 Days Qty: 84 0RF oxycodone 5 mg Tablet 5 mg PO Q6 PRN (Reason: pain) Qty: 30 0RF cefadroxil 500 mg capsule 500 mg PO BID 10 Days Qty: 20 0RF Continued (DME) lancets [OneTouch Delica Lancets] 33 gauge misc See Rx Instructions .ROUTE .MEDSUPPLY Qty: 100 0RF Rx Instructions: testing daily albuterol sulfate [ProAir HFA] 90 mcg/actuation HFA aerosol inhaler 2 puff inhalation QID PRN (Reason: shortness of breath) Qty: 8.5 2RF lorazepam 0.5 mg tablet 0.5 mg PO BID PRN (Reason: anxiety) Qty: 50 0RF diclofenac sodium 1 % gel 2 g topical QID PRN (Reason: pain ) Qty: 100 2RF mupirocin 2 % ointment 1 applic topical BID Qty: 22 0RF Rx Instructions: Apply to areas of the nose and abdomen twice daily until healed as directed. (DME) Wheeled Walker [facility] [place] See Rx Instructions .MEDSUPPLY Qty: 1 0RF Rx Instructions: As directed ojifxiioqo-snixdfiqtbrjc-stgb [Fioricet] 50-300-40 mg capsule 1 - 2 cap PO Q4H PRN (Reason: Migraine Headache) Qty: 18 1RF ondansetron HCl 4 mg tablet 4 mg PO Q6H PRN (Reason: nausea and vomiting) Qty: 20 3RF (DME) blood-glucose meter Kit See Rx Instructions .ROUTE .MEDSUPPLY Qty: 1 0RF Rx Instructions: As directed (DME) blood sugar diagnostic Strip See Rx Instructions .ROUTE .MEDSUPPLY Qty: 100 0RF Rx Instructions: Test once daily pantoprazole [Protonix] 40 mg tablet,delayed release (DR/EC) 40 mg PO HS rosuvastatin 20 mg tablet 20 mg PO HS sertraline 100 mg tablet 200 mg PO HS Rx Instructions: TAKE 2 TABLETS BY MOUTH DAILY ropinirole 0.25 mg tablet 0.25 mg PO HS Rx Instructions: 0.25 mg orally at bedtime; multivitamin Tablet 1 tab PO QAM cyanocobalamin (vitamin B-12) [Vitamin B-12] 1,000 mcg Tablet Extended Release 1,000 mcg PO HS Discontinued tramadol 50 mg tablet 50 mg PO Q6H PRN (Reason: pain) Qty: 20 0RF Admission Data Admit Date/Time: 05/27/23 08:27 Attending Provider: Eros Faye Admit Provider: Eros Faye Primary Care Provider: Izaiah Dunn Other Providers: Gordo Paniagua Other Interventions: Discharge Summary Assessment (RN) Last Done: 05/28/23 09:49
--- NOTE | 2023-05-28 11:01 | Hospitalist Progress Note ---
Date of Service May 28, 2023 Assessment & Plan (1) Status post right partial knee replacement: Plan: s/p right total knee arthroplasty 05/27/[address] Faye. - Consulted for bradycardia and hypotension - patient asymptomatic, likely secondary to medication effects from anesthesia. - hgb 12, electrolytes and Mag WNL - Recieved LR 500mL bolus x 1 -TSH WNL -Simethicone PRN gas pain -Post-operative management, pain control, anti-emetics, bowel regimen and discharge planning per primary team Patient with new medial LE numbness/tingling this morning, low suspicion for DVT. Discussed with Charo Melo. Suspect related to local anesthetic wearing off vs positional. Okay to continue to monitor. (2) Chronic obstructive pulmonary disease: Plan: Patient denies cough, SOB or wheeze. No O2 requirement -Continue Albuterol PRN (3) Hyperlipidemia: Plan: Chronic. Stable -Continue Crestor 20mg po qHS (4) Prediabetes: Plan: Diet managed. Blood sugars have been borderline high, last 137. HgbA1C 05/04 = 6 -Pharmacy following for glycemic management -Does not need insulin at discharge (5) GERD (gastroesophageal reflux disease): Plan: Chronic. Stable -Continue Protonix 40mg po qHS (6) Sleep apnea: Plan: Chronic. Stable -Patient does not use a device Plan Dispo: medically stable, agree with discharge Thank you for allowing us to participate in the care of this patient, please reach out with any questions or concerns Admission and Anticipated Discharge Date Admission Date: May 27, 2023 Subjective Patient sitting in bed, complaining of "weird feeling" on right leg after sitting in the chair. After further questioning, decreased sensation on medial side of lower right leg with some pins and needles feeling. No pain. Discussed low HR - does not know if that is her normal, but asymptomatic. No chest pain or shortness of breath. Review of Systems Review of Systems: All systems reviewed & are unremarkable except as noted in Subjective Physical Exam Physical Exam: General: NAD, VS as above Resp: normal respiratory effort, lungs clear to auscultation CV: bradycardia, no murmur, Extremities: Moves all extremities, right knee incison with jose raul, no signs of infection. Reports different sensation to medial side of lower right leg. Negative homans sign. No pain or redness. Neuro: A&O x3, Skin: some bruising around right knee incision Results & Data Results & Data Vital Signs (Past 12 Hours) Vital Signs Temp Pulse Resp BP Pulse Ox O2 Del Method 05/28/23 05:45 36.8 C 46 L 18 129/70 99 Room Air 05/28/23 03:08 36.5 C 40 L 16 101/64 96 Room Air 05/28/23 00:41 45 L 16 108/65 98 Room Air 05/27/23 23:23 36.5 C 44 L 14 95/53 L 93 Room Air Laboratory Results TSH reviewed PG Care Time/CCT Total # of Minutes Spent Total Time Spent with Patient: Total time spent is greater than 50% in coordination of care (as documented) at patient's floor/unit and/or counseling patient: Coding Level of Care Code 30197 SUB INP/OBS CARE 2/35MIN Diagnoses Status post right partial knee replacement Z96.651 Chronic obstructive pulmonary disease J44.9 Hyperlipidemia E78.5 Prediabetes R73.03 GERD (gastroesophageal reflux disease) K21.9 Sleep apnea G47.30
--- NOTE | 2023-05-29 06:16 | Electrocardiogram Report ---
Test Reason : Blood Pressure : / mmHG Vent. Rate : 044 BPM Atrial Rate : 044 BPM P-R Int : 142 ms QRS Dur : 096 ms QT Int : 518 ms P-R-T Axes : 044 024 029 degrees QTc Int : 442 ms Marked sinus bradycardia Abnormal ECG When compared with ECG of 01-OCT-2022 10:49, No significant change Confirmed by Craig Olmos ([id number]) on 05/29/2023 6:15:48 AM Referred By: Eros Faye Confirmed By:Craig Olmos
== END 2023-05-28 12:35 | disposition home health service (06) ==
LOC: 3E 05:08 → ASU 05:08
DX: Z86.16 Personal history of COVID-19; Z79.899 Other long term (current) drug therapy; F17.210 Nicotine dependence, cigarettes, uncomplicated; G47.33 Obstructive sleep apnea (adult) (pediatric); E78.5 Hyperlipidemia, unspecified; G25.81 Restless legs syndrome; R73.03 Prediabetes; Z88.6 Allergy status to analgesic agent; R00.1 Bradycardia, unspecified; I95.9 Hypotension, unspecified; M25.761 Osteophyte, right knee; Z88.8 Allergy status to other drugs, medicaments and biological substances; K21.9 Gastro-esophageal reflux disease without esophagitis; M17.11 Unilateral primary osteoarthritis, right knee; J44.9 Chronic obstructive pulmonary disease, unspecified